=== PATIENT | female | born 1960 | race American Indian/Alaskan Native ===

== ENCOUNTER 2021-08-23 17:59 | Emergency (ER) | payer MEDICAID, SELFPAY ==
[2021-08-23] VITALS (13 sets, daily range): BP systolic 120–149; BP diastolic 58–72; PULSE 92–100; RESP 15–23; TEMP 36.6; O2SAT 98–99; BMI 25.7
--- NOTE | 2021-08-23 18:11 | DI.RAD.S_ITS ---
PROCEDURE: XR CHEST 1V INDICATIONS: chest pain TECHNIQUE: One view of the chest was acquired. COMPARISON: [facility], CT, CT ANGIO CHEST PE, 09/19/2020, 13:29. [facility], CR, XR CHEST 1 VIEW, 12/28/2020, 0:31. FINDINGS: Surgical changes and devices: None. Lungs and pleura: Right upper lobe scarring. Diffuse underlying chronic interstitial changes present. No focal infiltrate, pneumothorax or pleural effusion. Mediastinum: Mediastinal contours appear normal. Heart size is normal. Bones and chest wall: No suspicious bony lesions. Overlying soft tissues appear unremarkable. IMPRESSION: Right upper lobe nodular scarring is stable from the prior exam without acute cardiopulmonary findings Approved by: Steven Lozano M.D. on 08/23/2021 at 18:05
--- NOTE | 2021-08-23 18:43 | PC.NURSE ---
During assessment patient reported hx of anemia that has required both iron infusions and blood transfusions. Also reports 11 pound weight gain. Pt c/o chest pain that is sharp with exertion and dull at rest, tried norco prescription she got from [employer] yesterday.
[2021-08-23 19:06] LABS: Add Manual Diff / Slide Review NO; Basophils Absolute Auto 0 /uL (0-100); Eosinophils Absolute Auto 400 /uL (0-450); Eosinophils Percent Auto 10.5 % (2-4); Hematocrit 32.5 % (36-46); Hemoglobin 10.6 g/dL (12.0-16.0); Lymphocytes Absolute Auto 800 /uL (1100-4500); Lymphocytes Percent Auto 20.5 % (25-40); Mean Corpuscular HGB Conc 32.8 % (30-36); Mean Corpuscular Hemoglobin 30.6 PG (26-34); Mean Corpuscular Volume 93.5 fL (80-100); Monocytes Absolute Auto 300 /uL (0-900); Monocytes Percent Auto 8.5 % (3-14); Neutrophils Absolute Auto 2400 /uL (1500-7000); Neutrophils Percent Auto 59.5 % (50-75); Red Blood Cell Count 3.47 X10^6/uL (4.0-5.2); Red Cell Distribution Width 16.3 % (11.6-14.8)
[2021-08-23 19:09] LABS: Alanine Aminotransferase 27 IU/L (<35); Albumin 2.8 g/dL (3.5-5.0); Albumin Globulin Ratio 0.8 (1.0-2.8); Alkaline Phosphatase 117 U/L (38-126); Aspartate Aminotransferase 48 IU/L (14-36); BUN Creatinine Ratio 12.9 (6-22); Bilirubin Total 1.2 mg/dL (0.2-1.3); Blood Urea Nitrogen 13 mg/dL (7-17); Calcium 8.2 mg/dL (8.4-10.2); Carbon Dioxide 21 mmol/L (22-32); Chloride 114 mmol/L (98-107); Creatine Kinase 157 U/L (30-135); Estimated Glomerular Filt Rate 55.4 mL/min (>60); Globulin 3.5 g/dL (1.7-4.1); Glucose 94 mg/dL (80-110); HEMOLYSIS < 15 (0-50); Lipase 512 U/L (23-300); Magnesium 2.2 mg/dL (1.6-2.3); Potassium 3.3 mmol/L (3.4-5.1); Sodium 142 mmol/L (137-145); Total Protein 6.3 g/dL (6.3-8.2)
[2021-08-23 19:24] LABS: CKMB % Relative Index 0.8 % (1.5-5.0); Creatine Kinase MB 1.19 ng/mL (<2.37)
[2021-08-23 22:33] LABS: NT-proBNP (BNP-Adult 18+) 512 pg/mL (<125)
[2021-08-23 22:55] LABS: Troponin I 0.021 ng/mL (0.01-0.034)
--- NOTE | 2021-08-23 23:18 | ED.CHESTPAIN ---
HPI - Chest Pain General Chief Complaint: Chest Pain Stated Complaint: CHEST PAIN Time Seen by Provider: 08/23/21 22:28 Source: patient Mode of arrival: Ambulatory Limitations: no limitations History of Present Illness HPI narrative: This is a 58 old female with complaint of chest pain that began Thursday morning. Patient states she has continued to have symptoms that have been constant. Occasionally increased sharpness in the left mid upper chest. Patient has been seen at [facility] in [place] [facility] and was told her ?heart was okay. Nothing seems to worsen or exacerbate it. She has had [place] which has been helpful but has not taken any the last 12 hours. She has used her albuterol but does not seem to make much difference. She does feel a bit more short of breath for the last 2 or 3 days. She has intermittent swelling in her legs but that is often present for her. She denies any past history of blood clots but does have a history of lung cancer which she states she is only under surveillance and has been cleared of her cancer. She does had radiation to the right side of her chest and a left lobectomy. Patient denies any fevers, chills, no nausea or vomiting. No abdominal, back or flank pain. No changing location in her pain. No issues with bowel movements or urination. She had an episode of AFib 1 year ago she states she was shocked and has not required any additional intervention. No cardiac stents, no daily thinners. She is anemic and gets iron infusions intermittently. She is on prednisone and your style for cirrhosis and her arthritis. She sees codeine makes her itch: She is allergic to right family been and tape. Related Data Home Medications Medication Instructions Recorded Confirmed [ENBREL] #0 06/21/06 Previous Rx's Medication Instructions Recorded hydrochlorothiazide 12.5 mg capsule 12.5 mg PO DAILY #5 cap 08/24/21 hydrocodone 5 mg-acetaminophen 325 1 tab PO QID PRN #7 tab 08/24/21 mg tablet Allergies Allergy/AdvReac Type Severity Reaction Status Date / Time codeine Allergy Verified 08/23/21 18:06 rifampin Allergy Verified 08/23/21 18:06 Review of Systems Review of Systems ROS Unobtainable: All systems reviewed & are unremarkable except as noted in HPI and below Patient History Social History Smoking Status: Never smoker Smoking Status: Never smoker Substance Use Type: does not use Exam Narrative Exam Narrative: GENERAL: Alert and oriented x three, female in [id number] distress. HEENT: Head normocephalic, atraumatic, EOMI, pupils reactive, face symmetric, moist mucous membranes NECK: Supple, full range of motion CARDIOVASCULAR: Regular rate and rhythm without murmurs, rubs or gallops. No JVD. No swelling appreciable bilateral lower extremities. Patient is non reproducible chest pain. No rash, erythema or skin changes. RESPIRATORY: Breath sounds equal bilaterally, no wheezes rales or rhonchi. No tachypnea accessory muscle use. ABDOMEN: Soft, nontender. Normoactive bowel sounds all 4 quadrants. No guarding or rebound, rigidity, no mass : No CVA tenderness EXTREMITIES: Normal range of motion, no clubbing or edema. Neurovascularly intact NEUROLOGICAL: Cranial nerves II through XII grossly intact. Moving all extremities SKIN: Warm, dry, no petechiae, no rashes or lesions. Initial Vital Signs Initial Vital Signs: Vital Signs Temperature 97.9 F 08/23/21 18:06 Pulse Rate 95 H 08/23/21 18:06 Respiratory Rate 22 08/23/21 18:06 Blood Pressure 148/67 H 08/23/21 18:06 Pulse Oximetry 99 08/23/21 18:06 Course Orders Ordered: ED Orders 08/23/21 23:47 CT angio chest PE protocol Stat Discontinued Medications Diphenhydramine HCl (Diphenhydramine 50 Mg/Ml Vial) 25 mg IV NOW ONE Stop: 08/24/21 00:14 Last Admin: 08/24/21 00:19 Dose: 25 mg Documented by: CLAIR Furosemide (Furosemide 40 Mg/4 Ml Vial) 40 mg IV NOW ONE Stop: 08/23/21 23:48 Last Admin: 08/23/21 23:57 Dose: 40 mg Documented by: DREA Methylprednisolone (Methylprednisolone 125 Mg/2 Ml Vial) 125 mg IV NOW ONE Stop: 08/24/21 00:20 Last Admin: 08/24/21 00:25 Dose: 125 mg Documented by: CLAIR Morphine Sulfate (Morphine 4 Mg/Ml Inj) 4 mg IV NOW ONE Stop: 08/23/21 23:40 Last Admin: 08/23/21 23:58 Dose: 4 mg Documented by: DREA Reevaluation(s) Reevaluation #1: Patient had a possible reaction to either morphine or Lasix. Patient received a Lasix 1st followed by morphine and a very short course. Time. Had some erythema at hives long area her vasculature. Was already improving was given Benadryl as well as Solu-Medrol. Patient did not have any other systemic symptoms. She does not have any known allergies to either of these medications. Reevaluation #2: Patient is feeling more comfortable at this time. Discussed a short course of diuretics but change from Lasix to hydrochlorothiazide is unclear if she has allergy or not. She has taken Reno many times was given a short prescription here in the department. Time: 01:48 Vital Signs Vital signs: Vital Signs - 8 hr 08/24/21 00:00 08/24/21 00:30 08/24/21 01:00 Temperature Pulse Rate 98 H 100 H 94 H Respiratory Rate 20 21 18 Blood Pressure 144/68 H 145/69 H Pulse Oximetry 98 97 96 08/24/21 02:17 Temperature 98.8 F Pulse Rate 103 H Respiratory Rate 15 Blood Pressure 144/69 H Pulse Oximetry 94 MDM - Chest Pain Lab Data Result diagrams: 08/23/21 18:42 08/23/21 18:42 Labs: Lab Results 08/23/21 08/23/21 08/23/21 Range/Units 18:42 18:42 18:42 WBC 4.0 L (4.5-11.0) X10^3/uL RBC 3.47 L (4.0-5.2) X10^6/uL Hgb 10.6 L (12.0-16.0) g/dL Hct 32.5 L (36-46) % MCV 93.5 (80-100) fL MCH 30.6 (26-34) PG MCHC 32.8 (30-36) % RDW 16.3 H (11.6-14.8) % Plt Count TNP Neut % (Auto) 59.5 (50-75) % Lymph % (Auto) 20.5 L (25-40) % [place] % (Auto) 8.5 (3-14) % Eos % (Auto) 10.5 H (2-4) % Baso % (Auto) 1.0 (0-2) % Neut # (Auto) 2400 (2302-0190) /uL Lymph # (Auto) 800 L (1803-8656) /uL [place] # (Auto) 300 (0-900) /uL Eos # (Auto) 400 (0-450) /uL Baso # (Auto) 0 (0-100) /uL Sodium 142 (137-145) mmol/L Potassium 3.3 L (3.4-5.1) mmol/L Chloride 114 H (98-107) mmol/L Carbon Dioxide 21 L (22-32) mmol/L BUN 13 (7-17) mg/dL Creatinine 1.01 (0.52-1.04) mg/dL Estimated GFR 55.4 L (>60) mL/min BUN/Creatinine Ratio 12.9 (6-22) Glucose 94 (80-110) mg/dL Calcium 8.2 L (8.4-10.2) mg/dL Magnesium 2.2 (1.6-2.3) mg/dL Total Bilirubin 1.2 (0.2-1.3) mg/dL AST 48 H (14-36) IU/L ALT 27 (<35) IU/L Alkaline Phosphatase 117 (38-126) U/L Total Creatine Kinase 157 H (30-135) U/L CK-MB (CK-2) 1.19 (<2.37) ng/mL CK-MB (CK-2) Rel Index 0.8 L (1.5-5.0) % Troponin I 0.020 (0.01-0.034) ng/mL NT-Pro-B Natriuret Pep 512 H (<125) pg/mL Total Protein 6.3 (6.3-8.2) g/dL Albumin 2.8 L (3.5-5.0) g/dL Globulin 3.5 (1.7-4.1) g/dL Albumin/Globulin Ratio 0.8 L (1.0-2.8) Lipase 512 H (23-300) U/L 08/23/ Range/Units 18:42 WBC (4.5-11.0) X10^3/uL RBC (4.0-5.2) X10^6/uL Hgb (12.0-16.0) g/dL Hct (36-46) % MCV (80-100) fL MCH (26-34) PG MCHC (30-36) % RDW (11.6-14.8) % Plt Count Neut % (Auto) (50-75) % Lymph % (Auto) (25-40) % [place] % (Auto) (3-14) % Eos % (Auto) (2-4) % Baso % (Auto) (0-2) % Neut # (Auto) (5159-9157) /uL Lymph # (Auto) (8754-7890) /uL [place] # (Auto) (0-900) /uL Eos # (Auto) (0-450) /uL Baso # (Auto) (0-100) /uL Sodium (137-145) mmol/L Potassium (3.4-5.1) mmol/L Chloride (98-107) mmol/L Carbon Dioxide (22-32) mmol/L BUN (7-17) mg/dL Creatinine (0.52-1.04) mg/dL Estimated GFR (>60) mL/min BUN/Creatinine Ratio (6-22) Glucose (80-110) mg/dL Calcium (8.4-10.2) mg/dL Magnesium (1.6-2.3) mg/dL Total Bilirubin (0.2-1.3) mg/dL AST (14-36) IU/L ALT (<35) IU/L Alkaline Phosphatase (38-126) U/L Total Creatine Kinase (30-135) U/L CK-MB (CK-2) (<2.37) ng/mL CK-MB (CK-2) Rel Index (1.5-5.0) % Troponin I 0.021 (0.01-0.034) ng/mL NT-Pro-B Natriuret Pep (<125) pg/mL Total Protein (6.3-8.2) g/dL Albumin (3.5-5.0) g/dL Globulin (1.7-4.1) g/dL Albumin/Globulin Ratio (1.0-2.8) Lipase (23-300) U/L Imaging Data Chest x-ray: Radiologist's Impression: Launch?[address] [address] XRay Report Signed Patient: Ashia Farfan MR#: [id number] : 1960 Acct:[id number] Age/Sex: 61 / F Date of Service: 08/23/21 Loc: ED Accession Number: [id number] ?? Procedure: XR chest 1V Ordering Provider: Latanya Berg MD PROCEDURE:? XR CHEST 1V ? INDICATIONS:? chest pain ? TECHNIQUE:? One view of the chest was acquired.? ? COMPARISON:? [facility], CT, CT ANGIO CHEST PE, 09/19/2020, 13:29.? [facility], CR, XR CHEST 1 VIEW, 12/28/2020, 0:31. ? FINDINGS:? ? Surgical changes and devices:? None.? ? Lungs and pleura:? Right upper lobe scarring.? Diffuse underlying chronic interstitial changes present.? No focal infiltrate, pneumothorax or pleural effusion. ? Mediastinum:? Mediastinal contours appear normal.? Heart size is normal.? ? Bones and chest wall:? No suspicious bony lesions.? Overlying soft tissues appear unremarkable.? ? IMPRESSION:? Right upper lobe nodular scarring is stable from the prior exam without acute cardiopulmonary findings ? ? ? Approved by: Steven Lozano M.D. on 08/23/2021 at 18:05? CT scan - chest: Radiologist's Impression: Launch?[place] [address] CT Scan Report Signed Patient: Ashia Farfan MR#: [id number] : 1960 Acct:[id number] Age/Sex: 61 / F Date of Service: 08/23/21 Loc: ED Accession Number: [id number] ?? Procedure: CT angio chest PE protocol Ordering Provider: Izzy Fink D.O. PROCEDURE:? CT ANGIO CHEST PE PROTOCOL ? INDICATIONS:? chest pain, ? TECHNIQUE:? After the administration of intravenous contrast, 2 mm thick sections acquired from the pulmonary apices to the posterior costophrenic angles.? 3-dimensional maximum intensity projection (MIP) coronal and sagittal reformats were then acquired through the thorax.? For radiation dose reduction, the following was used:? automated exposure control, adjustment of mA and/or kV according to patient size.? ? COMPARISON:? [facility], CT, CT ANGIO CHEST PE, 09/19/2020, 13:29.? [facility], CT, CT ANGIO CHEST PE, 07/30/2020, 20:00.? [facility], CT, CT ANGIO CHEST PE, 06/14/2019, 18:15.? [facility], CT, CT ANGIO CHEST PE, 08/09/2018, 20:46. ? FINDINGS:? Image quality:? Excellent.? ? Pulmonary arteries:? Pulmonary arteries are normal in size, and demonstrate no intraluminal filling defects to suggest central pulmonary embolism.? ? Lungs and pleura:? Masslike opacity in the apex of the right lung is stable in size and contour compared to September 19, 2020. No pleural effusions or pneumothorax.? Central and peripheral airways are patent.? ? Mediastinum:? Heart size is normal, without pericardial effusion.? Sutures in the left mediastinum are stable compared to prior exam.? No mediastinal or hilar adenopathy.? Thoracic aorta is normal in caliber and enhancement.? Esophagus is normal in caliber, without hiatal hernia.? ? Bones and chest wall:? No suspicious bony lesions.? Postsurgical changes involving the left 7th rib is stable compared to prior exam.? thoracic spine appear intact throughout.? No axillary or supraclavicular adenopathy.? ? Abdomen:? Splenorenal venous varices noted concerning for sequela of chronic portal venous hypertension.? Visualized upper abdominal solid organs appear normal in the early arterial phase of enhancement.? ? IMPRESSION:? ? 1. No pulmonary embolus. ? 2. Masslike opacity in the apex of the right lung is stable compared to September 19, 2020. Malignancy is not excluded by this study. ? 3. Partially visualized splenorenal venous varices suggesting sequela of chronic portal hypertension.? Recommend correlation clinical data.? ? ? Dictated by: Bianca Martínez MD, PhD on 08/24/2021 at 1:09 ? ? Approved by: Bianca Martínez MD, PhD on 08/24/2021 at 1:15? ECG Data Attestation: I personally reviewed and interpreted this ECG as follows: Prior ECG tracings: not available for review Interpretation: Sinus rhythm. Rate of 93 NH 148 QRS 80 QTC 472. No acute ST changes appreciated. Patient does not have priors for comparison. MDM Narrative Medical decision making narrative: This is a 61-year-old female with chest pain which has been persistent with no elevation or new EKG changes appreciated. Discussed with patient she was seen at [facility], she had elevated dimer is but has had negative CT angios in the chest in the past an on her most recent visit head and elevated dimer but decision was made to defer. Patient has a history of cancer but no active cancer. She is not a smoker but with her persistent pain, slight tachycardia we discussed and she ultimately agreed with the angio chest. There is some scarring but no acute changes appreciated no pulmonary emboli. She has had some improvement with pain medication. She has been a little short of breath and was noted BNP was somewhat elevated although no clear pulmonary edema imaging given a dose of diuretic. Lipase was a little elevated and this may be playing a part as well although her location is left upper chest so this seems less likely. She was asked to follow up to have her level rechecked. Given a short course of diuretic. Alternative choice was made as patient had some kind of either histamine reaction to possibly morphine but she had Lasix and morphine about the same time and developed some erythema and have like changes at the IV site and felt it would be prudent to use a different medication. Patient has run out of the narcotic pain medication that she has sunni was taking and was finding this helpful so was given a short course of oral medication. Discharge Plan Departure Patient Disposition: Home Clinical Impression: Chest pain Instructions: DI for Atypical Chest Pain Activity Restrictions/Additional Instructions: Your imaging and labs today are reassuring. They do show some extra fluid in you are given a prescription for a diuretic to see if this is helpful. Your potassium is slightly low at 3.3 today I would recommend following up to have this rechecked in the next several days. Your pancreatic enzyme is also mildly elevated but this is not entirely consistent with your symptoms today. Would have this recheck if you continue to have symptoms. Prescription sent to [facility] in [place]. Please continue home medications as prescribed. Please follow-up with your physician for recheck. Please return for fevers, new or worsening abdominal, back or chest pain, passing out, persistent vomiting or other new or concerning symptoms. Prescriptions: New hydrochlorothiazide 12.5 mg capsule 12.5 mg PO DAILY Qty: 5 RF: 0 hydrocodone-acetaminophen 5-325 mg tablet 1 tab PO QID PRN (Reason: pain) Qty: 7 RF: 0 No Action [ENBREL] Qty: 0 RF: 0
--- NOTE | 2021-08-23 23:47 | DI.CT.S_ITS ---
PROCEDURE: CT ANGIO CHEST PE PROTOCOL INDICATIONS: chest pain, TECHNIQUE: After the administration of intravenous contrast, 2 mm thick sections acquired from the pulmonary apices to the posterior costophrenic angles. 3-dimensional maximum intensity projection (MIP) coronal and sagittal reformats were then acquired through the thorax. For radiation dose reduction, the following was used: automated exposure control, adjustment of mA and/or kV according to patient size. COMPARISON: [facility], CT, CT ANGIO CHEST PE, 09/19/2020, 13:29. [facility], CT, CT ANGIO CHEST PE, 07/30/2020, 20:00. [facility], CT, CT ANGIO CHEST PE, 06/14/2019, 18:15. [facility], CT, CT ANGIO CHEST PE, 08/09/2018, 20:46. FINDINGS: Image quality: Excellent. Pulmonary arteries: Pulmonary arteries are normal in size, and demonstrate no intraluminal filling defects to suggest central pulmonary embolism. Lungs and pleura: Masslike opacity in the apex of the right lung is stable in size and contour compared to September 19, 2020. No pleural effusions or pneumothorax. Central and peripheral airways are patent. Mediastinum: Heart size is normal, without pericardial effusion. Sutures in the left mediastinum are stable compared to prior exam. No mediastinal or hilar adenopathy. Thoracic aorta is normal in caliber and enhancement. Esophagus is normal in caliber, without hiatal hernia. Bones and chest wall: No suspicious bony lesions. Postsurgical changes involving the left 7th rib is stable compared to prior exam. thoracic spine appear intact throughout. No axillary or supraclavicular adenopathy. Abdomen: Splenorenal venous varices noted concerning for sequela of chronic portal venous hypertension. Visualized upper abdominal solid organs appear normal in the early arterial phase of enhancement. IMPRESSION: 1. No pulmonary embolus. 2. Masslike opacity in the apex of the right lung is stable compared to September 19, 2020. Malignancy is not excluded by this study. 3. Partially visualized splenorenal venous varices suggesting sequela of chronic portal hypertension. Recommend correlation clinical data. Dictated by: Bianca Martínez MD, PhD on 08/24/2021 at 1:09 Approved by: Bianca Martínez MD, PhD on 08/24/2021 at 1:15
[2021-08-23] MEDS: FUROSEMIDE 40 MG/4 ML VIAL IV (23:57)
[2021-08-23] MEDS: MORPHINE 4 MG/ML INJ IV (23:58)
[2021-08-24] VITALS: BP 144/68; PULSE 98; RESP 20; O2SAT 98
[2021-08-24] MEDS: diphenhydrAMINE 50 MG/ML VIAL 25 MG IV (00:19)
[2021-08-24] MEDS: methylPREDNISolone 125 MG/2 ML VIAL IV (00:25)
[2021-08-24 00:30] VITALS: BP 145/69; PULSE 100; RESP 21; O2SAT 97
[2021-08-24 01:00] VITALS: PULSE 94; RESP 18; O2SAT 96
[2021-08-24 02:17] VITALS: BP 144/69; PULSE 103; RESP 15; TEMP 37.1; O2SAT 94
== END 2021-08-24 02:10 | disposition home or self-care (01) ==
PROVIDERS: Emergency Medicine; Emergency Provider Emergency Medicine
DX: R07.9 Chest pain, unspecified (principal); R00.0 Tachycardia, unspecified
CPT/HCPCS: 36415; 71045; 71275; 80053; 82550; 82553; 83690; 83735; 83880; 84484; 85025; 93005; 93010; 96374; 96375; 99284; J1200; J1940; J2270; J2930; Q9967